=== PATIENT | male | born 1940 | race Caucasian/White ===

== ENCOUNTER 2019-02-04 18:19 | Emergency (ER) | payer MEDICARE ==
[2019-02-04 19:08] VITALS: BP 134/58
--- NOTE | 2019-02-04 19:25 | UC ---
Hand/Wrist HPI - HPI Summary HPI Summary: 78-year-old male comes in with a chief complaint of left hand and wrist swelling and pain. He reports this started 4-5 days ago. His daughter has seen and the father's days and as is the first day he told her. He does have some dementia. No fevers or chills. Pain is worse with movement. He has not taken any medications for. Patient denies any trauma. Patient has had gout before but never in his hand. - History Of Current Complaint Chief Complaint: UCUpperExtremity Stated Complaint: LEFT HAND SWELLING/BRUISING Time Seen by Provider: 02/04/19 19:08 Pain Intensity: 6 - Allergies/Home Medications Allergies/Adverse Reactions: Allergies Allergy/AdvReac Type Severity Reaction Status Date / Time No Known Allergies Allergy Verified 02/04/19 19:08 Home Medications: Home Medications Albuterol 2.5MG/3ML (0.083%)* [Ventolin 2.5 MG/3 ML NEB.AWILDA*] 2.5 mg INH Q4H PRN 02/04/19 [History Confirmed 02/04/19] Fexofenadine (NF) [Candace (NF)] 60 mg PO DAILY 02/04/19 [History Confirmed ] Levothyroxine Sodium [Synthroid] 50 mcg PO DAILY 02/04/19 [History Confirmed ] PMH/Surg Hx/FS Hx/Imm Hx Previously Healthy: Yes - DEMENTIA Endocrine History: Hypothyroidism - Surgical History Surgical History: Yes Surgery Procedure, Year, and Place: Appendectomy 1956, Colon resection 2002 - Family History Known Family History: Positive: Non-Contributory - Social History Alcohol Use: Occasionally Substance Use Type: None Smoking Status (MU): Former Smoker Review of Systems All Other Systems Reviewed And Are Negative: Yes Constitutional: Positive: Negative Skin: Positive: Other - SEE HPI Eyes: Positive: Negative ENT: Positive: Negative Respiratory: Positive: Negative Cardiovascular: Positive: Negative Gastrointestinal: Positive: Negative Motor: Positive: Other - SE HPI Neurovascular: Positive: Negative Musculoskeletal: Positive: Other: - SEE HPI Neurological: Positive: Negative Psychological: Positive: Negative Is Patient Immunocompromised?: No Physical Exam Triage Information Reviewed: Yes Appearance: Well-Appearing, Well-Nourished, Pain Distress - MILD WITH ROM LEFT HAND Vital Signs: Initial Vital Signs Temp 99.4 F 02/04/19 19:05 Pulse 78 02/04/19 19:05 Resp 19 02/04/19 19:05 BP 134/58 02/04/19 19:05 Pulse Ox 98 02/04/19 19:05 Vital Signs Reviewed: Yes Eye Exam: Normal Eyes: Positive: Conjunctiva Clear Neck: Positive: Supple Respiratory: Positive: No respiratory distress Musculoskeletal: Positive: Other: - The left hand and wrist are swollen tender to palpation slightly warm to touch. Accommodation of ecchymosis and erythema. Normal capillary refill. Normal radial pulses. Neurological: Positive: Alert Psychological: Positive: Age Appropriate Behavior Skin: Positive: Other - ECCYMOSIS LEFT HAND/WRIST Hand/Wrist Course/Dx - Course Course Of Treatment: I discussed the x-rays with the patient and his daughter. 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 Radiologist reading is pending. The dorsum of the hand is erythematous and warm to touch. The palmar surface is not. Different possibilities include cellulitis or other infection or gout. I do not note the kidney function for this patient is although the daughter reports that it's normal. Going to treat with ibuprofen 400 mg every 6 hours as needed and a cock-up splint. Cock-up splint was placed by nursing patient neurovascular intact after placement of the cock-up splint. For the possibility of cellulitis or other infection related to Keflex 500 mg by mouth 3 times a day. I let the patient and his daughter know that this patient needs close follow-up as if this is infection could spread and dangerous. I let them know that if the redness comes up the arm if he gets a fever she gets worse he needs to go directly to the emergency department. - Differential Dx/Diagnosis Provider Diagnosis: Swelling of left hand, Left hand pain Discharge - Sign-Out/Discharge Documenting (check all that apply): Patient Departure All imaging exams completed and their final reports reviewed: No - Discharge Plan Condition: Stable Disposition: HOME Prescriptions: Cephalexin CAP* [Keflex CAP*] 500 mg PO TID #39 cap Patient Education Materials: Cellulitis (ED) Referrals: Williams Khalil MD [Primary Care Provider] - Additional Instructions: FOLLOW UP WITH YOUR PRIMARY CARE DOCTOR OR ORTHOPEDICS, DR DO, TOMORROW. TAKE IBUPROFEN 400MG EVERY 6 HOURS NEEDED. GET REEVALUATED SOONER IF WORSE OR ANY QUESTIONS OR CONCERNS. - Billing Disposition and Condition Condition: STABLE Disposition: Home
[2019-02-04] MEDS ORDERED: Cephalexin CAP* 500 MG PO ONE (19:42)
[2019-02-04] MEDS ORDERED: Ibuprofen TAB* 400 MG PO ONE (19:42)
--- NOTE | 2019-02-05 08:26 | ED ---
Progress - Progress Note Progress Note: Xray final read reviewed, and no acute fractures as noted also by Doctor reading last night. Course/Dx - Diagnoses Provider Diagnoses: Swelling of left hand, Left hand pain Discharge - Sign-Out/Discharge Documenting (check all that apply): Patient Departure All imaging exams completed and their final reports reviewed: Yes - Discharge Plan Condition: Stable Disposition: HOME Prescriptions: Cephalexin CAP* [Keflex CAP*] 500 mg PO TID #39 cap Patient Education Materials: Cellulitis (ED) Referrals: Williams Khalil MD [Primary Care Provider] - Additional Instructions: FOLLOW UP WITH YOUR PRIMARY CARE DOCTOR OR ORTHOPEDICS, DR DO, TOMORROW. TAKE IBUPROFEN 400MG EVERY 6 HOURS NEEDED. GET REEVALUATED SOONER IF WORSE OR ANY QUESTIONS OR CONCERNS. - Billing Disposition and Condition Condition: STABLE Disposition: Home
== END 2019-02-04 19:55 | disposition home or self-care (01) ==
LOC: UCCORT 18:19
DX: M79.89 Other specified soft tissue disorders (principal); M79.642 Pain in left hand; E03.9 Hypothyroidism, unspecified; Z87.891 Personal history of nicotine dependence
CPT/HCPCS: 99213; A9270-GY; G0463

== ENCOUNTER 2020-10-04 10:23 | Inpatient (IN) ==
[2020-10-04 10:53] LABS: Hematocrit 25 % (42-52); Hemoglobin 7.9 g/dL (14.0-18.0); Mean Corpuscular HGB Conc 31 g/dL (31-36); Mean Corpuscular Hemoglobin 30 pg (27-31); Mean Corpuscular Volume 95 fL (80-94); Red Blood Count 2.67 10^6 /uL (4.18-5.48); Red Cell Distribution Width 21 % (10-15); White Blood Count 188.3 10^3/uL (3.5-10.8)
[2020-10-04] MEDS ORDERED: Lidocaine 2% PF 5 ML VIAL ONE (10:57)
[2020-10-04 11:12] LABS: Mean Platelet Volume 7.9 fL (7.4-10.4); Platelet Count 14 10^3/uL (150-450)
[2020-10-04 11:18] LABS: Albumin 2.8 g/dL (3.2-5.2); Albumin/Globulin Ratio 0.7 (1-3); BUN/Creatinine Ratio 30.7 (8-20); Calcium 8.7 mg/dL (8.6-10.3); EGFR African American 85.8 (>60); EGFR Non-African American 70.9 (>60); Globulin 4.1 g/dL (2-4); Potassium 4.9 mmol/L (3.5-5.0); Total Protein 6.9 g/dL (6.4-8.9); Uric Acid 7.3 mg/dL (4.4-7.6)
[2020-10-04 11:53] LABS: ABS Neutrophils 5.6 10^3/ul (1.5-7.7)
[2020-10-04] MEDS ORDERED: Albuterol 2.5mg/3 ml (0.083%) NEB.SOLN INH PRN (14:42)
[2020-10-04] MEDS ORDERED: Fluticasone NASAL SPRAY 50MCG 16 gm SPRAY BTL INTRANASAL PRN (14:42)
[2020-10-04] MEDS: NS 0.9% 1000 ml BAG 1,000 ML IV SCH (15:47)
[2020-10-05 04:59] LABS: Hematocrit 25 % (42-52); Hemoglobin 7.6 g/dL (14.0-18.0); Mean Corpuscular HGB Conc 31 g/dL (31-36); Mean Corpuscular Hemoglobin 29 pg (27-31); Mean Corpuscular Volume 93 fL (80-94); Red Blood Count 2.64 10^6 /uL (4.18-5.48); Red Cell Distribution Width 20 % (10-15); White Blood Count 132.1 10^3/uL (3.5-10.8)
[2020-10-05 05:01] LABS: Albumin 2.4 g/dL (3.2-5.2); Albumin/Globulin Ratio 0.7 (1-3); BUN/Creatinine Ratio 37.4 (8-20); Calcium 8.2 mg/dL (8.6-10.3); EGFR African American 96.8 (>60); Globulin 3.4 g/dL (2-4); Potassium 3.7 mmol/L (3.5-5.0); Total Bilirubin 0.6 mg/dL (0.2-1.0); Total Protein 5.8 g/dL (6.4-8.9)
[2020-10-05] MEDS: NS 0.9% 1000 ml BAG 1,000 ML IV SCH (05:05)
[2020-10-05] MEDS: Multivitamins/Minerals TAB PO SCH (07:20)
[2020-10-05] MEDS: Calcium/Vitamin D TAB 250/125 TAB PO SCH (07:21)
[2020-10-05] MEDS: Cholecalciferol (VIT D3) 1,000 unit TAB PO SCH (07:21)
[2020-10-05 08:39] LABS: ABS Neutrophils 1.3 10^3/ul (1.5-7.7)
[2020-10-05 08:42] LABS: Mean Platelet Volume 8.2 fL (7.4-10.4); Platelet Count 22 10^3/uL (150-450)
[2020-10-05] MEDS ORDERED: NS 0.9% 1000 ml BAG 1,000 ML IV SCH (10:13)
[2020-10-05] MEDS ORDERED: LORazepam 2 mg VIAL 1 ml IV PUSH PRN (16:01)
[2020-10-05] MEDS ORDERED: Lorazepam PYXIS KEY PRN (16:01)
[2020-10-05] MEDS: Magic MouthWash2-BEN/MAAL/LIDO/NYST 240 ML BTL (alt formulation) SWISH SPIT SCH ×2 (16:50→20:17)
[2020-10-06] MEDS: Magic MouthWash2-BEN/MAAL/LIDO/NYST 240 ML BTL (alt formulation) SWISH SPIT SCH ×4 (07:30→20:23)
[2020-10-06] MEDS: Cholecalciferol (VIT D3) 1,000 unit TAB PO SCH (07:30)
[2020-10-06] MEDS: Calcium/Vitamin D TAB 250/125 TAB PO SCH (07:31)
[2020-10-06] MEDS: Multivitamins/Minerals TAB PO SCH (07:31)
[2020-10-06] MEDS: Morphine 2 MG/ML SYRINGE IV PRN (14:51)
[2020-10-07] MEDS: Cholecalciferol (VIT D3) 1,000 unit TAB PO SCH (08:17)
[2020-10-07] MEDS: Multivitamins/Minerals TAB PO SCH (08:17)
[2020-10-07] MEDS: Calcium/Vitamin D TAB 250/125 TAB PO SCH (08:18)
[2020-10-07] MEDS: Magic MouthWash2-BEN/MAAL/LIDO/NYST 240 ML BTL (alt formulation) SWISH SPIT SCH ×5 (08:23→23:37)
[2020-10-07] MEDS: Morphine 2 MG/ML SYRINGE IV PRN (15:43)
[2020-10-08] MEDS: Morphine 2 MG/ML SYRINGE IV PRN (06:22)
[2020-10-08] MEDS: Cholecalciferol (VIT D3) 1,000 unit TAB PO SCH (09:08)
[2020-10-08] MEDS: Calcium/Vitamin D TAB 250/125 TAB PO SCH (09:08)
[2020-10-08] MEDS: Magic MouthWash2-BEN/MAAL/LIDO/NYST 240 ML BTL (alt formulation) SWISH SPIT SCH ×4 (09:08→20:17)
[2020-10-08] MEDS: Multivitamins/Minerals TAB PO SCH (09:08)
[2020-10-08 09:54] VITALS: BP 116/54
[2020-10-08] MEDS ORDERED: Morphine ORAL CONCENTRATE 5 MG/0.25 ML ORAL.SYRIN SL PRN (10:57)
[2020-10-09] MEDS: Calcium/Vitamin D TAB 250/125 TAB PO SCH (07:48)
[2020-10-09] MEDS: Cholecalciferol (VIT D3) 1,000 unit TAB PO SCH (07:48)
[2020-10-09] MEDS: Multivitamins/Minerals TAB PO SCH (07:48)
[2020-10-09] MEDS: Magic MouthWash2-BEN/MAAL/LIDO/NYST 240 ML BTL (alt formulation) SWISH SPIT SCH (07:48)
[2020-10-13 08:28] LABS: AML Result Summary Abnormal
[2020-10-13 08:32] LABS: AML Specimen Blood
== END 2020-10-09 10:50 | disposition hospice, home (50) | DRG 835 ==
LOC: CHOA 10:23 → MED 13:02
PROVIDERS: ADMIT Internal Medicine Hematology & Oncology; ATTEND Internal Medicine Hematology & Oncology